=== PATIENT | male | born 2000 | race Caucasian/White ===

== ENCOUNTER → 2022-11-06 | Outpatient (CLI) | payer OTHER ==
[~2022-11-06] MED LIST: GLUCAGON INJ 1MG VIAL As Ordered ONE; ISOVUE-370 76% 100ML VIAL As Ordered ONE; NEULUMEX 0.1% SUSPENSION 450ML BOTTLE (FORMERLY VOLUMEN) As Ordered ONE
== END ==
LOC: M RAD 12:11
PROVIDERS: ATTEND Internal Medicine Gastroenterology
DX: K50.018 Crohn's disease of small intestine with other complication (principal); K52.3 Indeterminate colitis
CPT/HCPCS: 74177; J1610; Q9967

== ENCOUNTER 2022-11-27 10:51 | Day surgery (SDC) | payer OTHER ==
[~2022-11-27] VITALS: Ht 177.8 cm; Wt 66.6 kg
[~2022-11-27 10:51] MED LIST changes: +CLAR10CA3 PO; +DICY20TA20 PO; -GLUCAGON INJ 1MG VIAL As Ordered ONE; +IBUP200C27 PO; -ISOVUE-370 76% 100ML VIAL As Ordered ONE; +LIDOCAINE 2% 100MG/5ML SDV (FOR ANES.) As Ordered ONE; -NEULUMEX 0.1% SUSPENSION 450ML BOTTLE (FORMERLY VOLUMEN) As Ordered ONE; +NS 1,000 ML IV ONE; +propofoL 200 MG/20 ML VIAL As Ordered ONE
[2022-11-27] MEDS ORDERED: fentaNYL 100 MCG/2 ML INJECTION As Ordered ONE (11:48)
[2022-11-27] MEDS ORDERED: ACET325C5 PO (12:00)
[2022-11-27] MEDS ORDERED: CEPH25SS PO (12:04)
[2022-11-27] MEDS ORDERED: propofoL 200 MG/20 ML VIAL As Ordered ONE (12:29)
[2022-11-27 13:52] VITALS: BP 132/74; TEMP 96.6; O2SAT 100
[2022-11-27 14:06] LABS: CLOSTRIDIUM DIFFICILE PCR NEGATIVE (NEGATIVE)
== END 2022-11-27 13:30 | disposition home or self-care (01) ==
LOC: M OPP 10:51
PROVIDERS: ATTEND Internal Medicine Gastroenterology
DX: K63.5 Polyp of colon (principal); K64.8 Other hemorrhoids; Q43.8 Other specified congenital malformations of intestine; K31.89 Other diseases of stomach and duodenum; Z79.1 Long term (current) use of non-steroidal anti-inflammatories (NSAID); Z79.2 Long term (current) use of antibiotics; Z79.899 Other long term (current) drug therapy; Z91.011 Allergy to milk products
CPT/HCPCS: 43239; 45380; 87324; 88305; J3010